=== PATIENT | female | born 1980 | race Caucasian/White ===

== ENCOUNTER 2020-06-20 10:14 | Emergency (ER) | payer SELFPAY ==
--- NOTE | 2020-06-20 10:36 | ED_ITS ---
HPI - Abdominal Pain General Chief Complaint: Abdominal Pain Stated Complaint: abd pain,vomiting Time Seen by Provider: 06/20/20 10:36 Source: patient Mode of arrival: ambulatory Limitations: no limitations History of Present Illness MD elicited complaint: abdominal pain Onset (ago): month(s) (2) Pain Consistency: intermittent Location: LUQ Severity: moderate Quality: stabbing and aching Radiation: none Migration to: no migration Exacerbating factors: eating Relieving factors: nothing Context: other (notes 2 months of soft stools and early satiety, intermittent LUQ pain and since last night LUQ pain more worse) Associated symptoms: nausea Related Data Previous Rx's Medication Instructions Recorded levofloxacin 500 mg PO DAILY 7 Days #7 tab 06/20/20 metronidazole [Flagyl] 500 mg PO BID 7 Days #14 tab 06/20/20 ondansetron 4 mg PO Q8H PRN #20 tab 06/20/20 oxycodone 5 mg PO TID PRN #14 tab 06/20/20 Allergies Allergy/AdvReac Type Severity Reaction Status Date / Time amoxicillin Allergy Unknown Verified 06/20/20 10:41 Review of Systems Review of Systems Constitutional : No Weight loss, No Fever, No Chills ENT/Mouth : No sore throat, No Rhinorrhea Eyes: No Swelling, No Redness Cardiovascular : No Chest Pain, No SOB, NoEdema Respiratory : No Cough, No Sputum, No Wheezing Gastrointestinal : Positive Nausea, no Vomiting, positive Diarrhea, positive abdominal Pain, No Hematochezia, No Melena Genitourinary : No Dysuria, No Urinary Frequency, No Hematuria, No Urgency Musculoskeletal : No joint pain, No Myalgias, No Joint Swelling Skin : No Skin Lesions, No rash Neuro : No Weakness, No Numbness, No Dizziness, No Headache Psych : No Anxiety/Panic, No Depression Heme/Lymph: No Bruising, No Lymphadenopathy Endocrine : No Polyuria, No Polydipsia All other systems reviewed and are negative. Physical Exam Vital Signs: Vital Signs: Last Vital Signs Temp 99.1 F 06/20/20 10:44 Pulse 79 06/20/20 13:08 Resp 16 06/20/20 13:08 BP 139/79 06/20/20 13:08 Pulse Ox 97 06/20/20 13:08 Body Mass Index 48.4 Appearance: Alert. Oriented X3. No acute distress. Eyes: Pupils equal, round and reactive to light. ENT: Pharynx normal. Neck: Normal inspection. Neck supple. CVS: Normal heart rate and rhythm. Pulses normal. Respiratory: No respiratory distress. Breath sounds normal. Abdomen: Soft and moderate LUQ ttp no rebound or guarding Skin: Skin warm and dry. Normal skin color. Normal skin turgor. Extremities: No lower extremity edema. No calf ttp Neuro: Oriented X 3. No motor deficit. No sensory deficit. Course Course Course Narrative: patient is not toxic, able to tolerate PO will start on antibiotics and refer to GI - patient aware MDM - Abdominal Pain MDM Narrative Medical decision making narrative: 40 yo female with hx of stones comes in with 2 months of soft stools and early satiety - no weight loss, then developed worsening LUQ pain at this time will need labs, IVF, CT scan for colitis/mass - no fam hx of IBD Lab Data Result diagrams: 06/20/20 11:03 06/20/20 11:03 Labs: Lab Results 06/20/20 06/20/20 06/20/20 Range/Units 11:03 11:03 11:03 WBC 13.5 H (4.8-10.8) X10*3/uL RBC 4.63 (4.20-5.50) X10*6/uL Hgb 12.9 (12.0-16.0) g/dl Hct 40.6 (37-47) % MCV 87.7 (80-98) fL MCH 27.9 (27.0-33.0) pg MCHC 31.8 (31.0-35.0) g/dl RDW 14.5 (11.0-16.0) % Plt Count 329 (160-400) X10*3/uL MPV 10.7 (9.4-12.3) fL Immature Gran % (Auto) 0.3 (0.0-0.4) % Neut % (Auto) 76.1 H (45-73) % Lymph % (Auto) 11.9 L (20-40) % [place] % (Auto) 10.9 (2-11) % Eos % (Auto) 0.4 (0-4) % Baso % (Auto) 0.4 (0-2) % Lymph # (Auto) 1.6 (1.2-4.9) X10*3/uL [place] # (Auto) 1.5 H (0.1-1.2) X10*3/uL Eos # (Auto) 0.1 (0.0-0.4) X10*3/uL Baso # (Auto) 0.1 (0.0-0.2) X10*3/uL Abs Immat Gran (auto) 0.04 H (0.00-0.03) X10*3/uL Absolute Neuts (auto) 10.3 H (2.0-8.3) X10*3/uL Absolute Nucleated RBC 0.000 (0.0-0.012) X10*3/uL Nucleated RBC % (auto) 0.0 (0.0-0.2) /100WBC Hold Blue Top SEE NOTE Sodium 139 (135-145) mmol/L Potassium 4.3 (3.3-5.1) mmol/l Chloride 105 (96-108) mmol/L Carbon Dioxide 24 (22-29) mmol/L Anion Gap 14 (12-20) BUN 5 L (9-16) mg/dL Creatinine 0.62 (0.5-1.4) mg/dL Estim Creat Clear Calc 150.2 Estimated GFR > 60 Random Glucose 94 (60-115) mg/dL Calcium 8.7 (8.4-10.2) mg/dL Magnesium 1.9 (1.6-2.6) mg/dL Total Bilirubin 0.4 (0.0-1.0) mg/dL Direct Bilirubin 0.2 (0.0-0.5) mg/dL AST 102 H (5-31) U/L ALT 92 H (0-31) U/L Alkaline Phosphatase 70 (39-117) U/L Total Protein 6.5 (6.5-8.0) g/dL Albumin 3.9 (3.5-5.0) g/dL Lipase 28 (8-78) U/L Urine Color Urine Appearance Urine pH (5.0-8.0) Ur Specific [place] (1.005-1.025) Urine Protein (NEG-TRACE) MG/DL Urine Glucose (UA) (NEG) MG/DL Urine Ketones (NEG) MG/DL Urine Blood (NEG) Urine Nitrite (NEG) Ur Leukocyte Esterase (NEG) Urine RBC (0) /HPF Urine WBC (0-4) /HPF Ur Squamous Epith Cells /LPF Urine Bacteria /LPF Urine Mucus /LPF Urine Test (NEGATIVE) 06/20/20 Range/Units 11:07 WBC (4.8-10.8) X10*3/uL RBC (4.20-5.50) X10*6/uL Hgb (12.0-16.0) g/dl Hct (37-47) % MCV (80-98) fL MCH (27.0-33.0) pg MCHC (31.0-35.0) g/dl RDW (11.0-16.0) % Plt Count (160-400) X10*3/uL MPV (9.4-12.3) fL Immature Gran % (Auto) (0.0-0.4) % Neut % (Auto) (45-73) % Lymph % (Auto) (20-40) % [place] % (Auto) (2-11) % Eos % (Auto) (0-4) % Baso % (Auto) (0-2) % Lymph # (Auto) (1.2-4.9) X10*3/uL [place] # (Auto) (0.1-1.2) X10*3/uL Eos # (Auto) (0.0-0.4) X10*3/uL Baso # (Auto) (0.0-0.2) X10*3/uL Abs Immat Gran (auto) (0.00-0.03) X10*3/uL Absolute Neuts (auto) (2.0-8.3) X10*3/uL Absolute Nucleated RBC (0.0-0.012) X10*3/uL Nucleated RBC % (auto) (0.0-0.2) /100WBC Hold Blue Top Sodium (135-145) mmol/L Potassium (3.3-5.1) mmol/l Chloride (96-108) mmol/L Carbon Dioxide (22-29) mmol/L Anion Gap (12-20) BUN (9-16) mg/dL Creatinine (0.5-1.4) mg/dL Estim Creat Clear Calc Estimated GFR Random Glucose (60-115) mg/dL Calcium (8.4-10.2) mg/dL Magnesium (1.6-2.6) mg/dL Total Bilirubin (0.0-1.0) mg/dL Direct Bilirubin (0.0-0.5) mg/dL AST (5-31) U/L ALT (0-31) U/L Alkaline Phosphatase (39-117) U/L Total Protein (6.5-8.0) g/dL Albumin (3.5-5.0) g/dL Lipase (8-78) U/L Urine Color YELLOW Urine Appearance CLEAR Urine pH 6.0 (5.0-8.0) Ur Specific [place] 1.015 (1.005-1.025) Urine Protein NEG (NEG-TRACE) MG/DL Urine Glucose (UA) NEG (NEG) MG/DL Urine Ketones NEG (NEG) MG/DL Urine Blood 1+ H (NEG) Urine Nitrite NEG (NEG) Ur Leukocyte Esterase 1+ H (NEG) Urine RBC 0-2 (0) /HPF Urine WBC 5-9 H (0-4) /HPF Ur Squamous Epith Cells 1+ /LPF Urine Bacteria 1+ /LPF Urine Mucus TRACE /LPF Urine Test NEGATIVE (NEGATIVE) Discharge Plan Discharge Clinical Impression: Colitis Patient Disposition: Home, Self-Care Instructions: Colitis (ED) Additional Instructions: return to ED for any worsening symptoms or concerns you will need to have a colonoscopy so please follow up with GI Prescriptions: New oxycodone 5 mg tablet 5 mg PO TID PRN (Reason: pain) Qty: 14 RF: 0 metronidazole [Flagyl] 500 mg tablet 500 mg PO BID 7 Days Qty: 14 RF: 0 levofloxacin 500 mg tablet 500 mg PO DAILY 7 Days Qty: 7 RF: 0 ondansetron 4 mg tablet,disintegrating 4 mg PO Q8H PRN (Reason: nausea and vomiting) Qty: 20 RF: 0 Referrals: Georgiana Martinez MD [Physician] - 1 week Stand Alone Forms: Work/School Release [facility] Past Medical History Medical History Kidney stones Surgical History History of lithotripsy Social History Social History Alcohol intake: never Smoking Status: Current every day smoker Use of substances other than those prescribed or required for medical reasons: No Advance Directives: No Advance Directives Information Provided: Yes
[2020-06-20 10:44] VITALS: BP 168/92; PULSE 100; RESP 18; TEMP 37.3; O2SAT 96; BMI 48.4
--- NOTE | 2020-06-20 10:52 | CT_ITS ---
EXAMINATION: CT abdomen pelvis w con CLINICAL INFORMATION: Reason for Exam L sided abdominal pain and diarrhea COMPARISON: No prior CT available for comparison. TECHNIQUE: Multidetector volumetric imaging was performed from the superior aspect of the liver through the pubic symphysis 85 mL Omnipaque 350 injected Sagittal and coronal reformatted images were obtained on the technologist's workstation. This CT examination was performed using dose optimization techniques as appropriate, variously including the following: *Automated exposure control *Adjustment of mA and/or kV according to patient size (this includes techniques or standardized protocols for targeted exams where dose is matched to indication/reason for exam; i.e. extremities or head) *Use of iterative reconstruction technique DLP: 1266 mGy-cm FINDINGS: LOWER THORAX: Included lung bases are clear. HEPATOBILIARY: No focal hepatic lesions. No biliary ductal dilatation. GALLBLADDER: There is 2 cm large gallstone. SPLEEN: Spleen is normal in size. PANCREAS: No focal mass or ductal dilatation. STOMACH AND GASTROINTESTINAL TRACT: Stomach is grossly unremarkable. A segment of the sigmoid colon left of midline exhibits circumferential wall thickening edema and pericolic fat stranding concerning for possible diverticulitis versus focal colitis. There is no abscess No CT evidence of appendicitis. ADRENALS: No adrenal nodules. KIDNEYS/URETERS: No hydronephrosis, stones or solid mass lesions. URINARY BLADDER: Partially decompressed. PELVIC VISCERA: Unremarkable PERITONEUM: No free air or fluid. LYMPH NODES: No lymphadenopathy. VASCULAR:Abdominal aorta normal in size, no aneurysm found. BONES, ABDOMINAL WALL AND SOFT TISSUES: Age-appropriate changes of the spine and skeletal system, no destructive osteolytic or osteosclerotic bone lesion found CT/CT abdomen pelvis w con IMPRESSION: A short segment of the colon transverse colon/splenic flecture left upper quadrant exhibits extensive circumferential wall thickening, wall edema and pericolic fat stranding concerning for ACUTE COLITIS could be secondary to a ruptured diverticula i.e. diverticulitis. This is uncommon location for diverticulitis, Attention to follow-up recommended to rule out possible underlying pathology. Consider follow-up CT scan in one month after completion of treatment. Large gallstone. Exam otherwise normal.
[2020-06-20 11:11] LABS: MANUAL DIFF FLAG NO
[2020-06-20 11:12] LABS: Basophils Absolute Auto 0.1 X10*3/uL (0.0-0.2); Basophils Percent Auto 0.4 % (0-2); Eosinophils Absolute Auto 0.1 X10*3/uL (0.0-0.4); Eosinophils Percent Auto 0.4 % (0-4); Hematocrit 40.6 % (37-47); Hemoglobin 12.9 g/dl (12.0-16.0); Imm Gran Abs Auto 0.04 X10*3/uL (0.00-0.03); Imm Gran Pct Auto 0.3 % (0.0-0.4); Lymphocytes Absolute Auto 1.6 X10*3/uL (1.2-4.9); Lymphocytes Percent Auto 11.9 % (20-40); Mean Corpuscular HGB Conc 31.8 g/dl (31.0-35.0); Mean Corpuscular Hemoglobin 27.9 pg (27.0-33.0); Mean Corpuscular Volume 87.7 fL (80-98); Mean Platelet Volume 10.7 fL (9.4-12.3); Monocytes Absolute Auto 1.5 X10*3/uL (0.1-1.2); Monocytes Percent Auto 10.9 % (2-11); Neutrophils Absolute Auto 10.3 X10*3/uL (2.0-8.3); Neutrophils Percent Auto 76.1 % (45-73); Platelet Count 329 X10*3/uL (160-400); Red Blood Count 4.63 X10*6/uL (4.20-5.50); Red Cell Distribution Width 14.5 % (11.0-16.0); White Blood Count 13.5 X10*3/uL (4.8-10.8)
[2020-06-20 11:16] LABS: Glucose Urine UA NEG (NEG); Leukocyte Esterase Urine 1+ (NEG); Nitrite Urine NEG (NEG); Specific Gravity - Urine 1.015 (1.005-1.025); Urine Blood 1+ (NEG); Urine Ketones NEG (NEG); Urine Protein NEG (NEG-TRACE)
[2020-06-20 11:19] LABS: Appearance Urine CLEAR; Color Urine YELLOW
[2020-06-20] MEDS: 0.9 % Sodium Chloride 1,000 ML 999 ML IVCONT (11:19)
[2020-06-20 11:21] LABS: UPreg QC Valid YES; Urine Pregnancy NEGATIVE (NEGATIVE)
[2020-06-20 11:41] LABS: Bacteria Urine 1+ /LPF; Mucus Urine TRACE /LPF; RBC Urine 0-2 /HPF (0); Squamous Epithelial Cell Urine 1+ /LPF
[2020-06-20 11:43] LABS: Alanine Aminotransferase 92 U/L (0-31); Albumin Level 3.9 g/dL (3.5-5.0); Alkaline Phosphatase 70 U/L (39-117); Anion Gap 14 (12-20); Aspartate Amino Transferase 102 U/L (5-31); Bilirubin Direct 0.2 mg/dL (0.0-0.5); Bilirubin Total 0.4 mg/dL (0.0-1.0); Blood Urea Nitrogen 5 mg/dL (9-16); Calcium 8.7 mg/dL (8.4-10.2); Carbon Dioxide 24 mmol/L (22-29); Chloride 105 mmol/L (96-108); Creatinine Clr Calc Pharmacy 150.2; Estimated Glomerular Filt Rate > 60; Glucose Random 94 mg/dL (60-115); Lipase 28 U/L (8-78); Magnesium 1.9 mg/dL (1.6-2.6); Potassium 4.3 mmol/l (3.3-5.1); Sodium 139 mmol/L (135-145); Total Protein 6.5 g/dL (6.5-8.0)
[2020-06-20] MEDS: iohexoL 350 MG/ML 100 ML INFUS..BTL 85 ML IV (12:35)
[2020-06-20 13:08] VITALS: BP 139/79; PULSE 79; RESP 16; O2SAT 97
== END 2020-06-20 14:17 | disposition home or self-care (01) ==
PROVIDERS: Emergency Provider Emergency Medicine
DX: K52.9 Noninfective gastroenteritis and colitis, unspecified (principal); Z87.442 Personal history of urinary calculi
CPT/HCPCS: 36415; 74177; 80048; 80076; 81001; 81025; 83690; 83735; 85025; 87086; 96361; 96374; 99284; 99285; Q9967

== ENCOUNTER → 2020-08-04 14:06 | Outpatient (BNVA) | payer OTHER, SELFPAY | PROVIDERS: PCP Emergency Medicine; Visit Provider Physician Assistant ==

== ENCOUNTER 2020-08-26 15:33 | Outpatient (REF) | payer OTHER, SELFPAY ==
--- NOTE | ~2020-08-26 | CT_ITS ---
EXAMINATION: CT ABDOMEN AND PELVIS WITH CONTRAST CLINICAL INFORMATION: Noninfectious gastroenteritis and colitis. COMPARISON: 06/20/2020 TECHNIQUE: Multidetector volumetric images were obtained from the superior aspect of the liver through the pubic symphysis following administration 85 mL of Omnipaque 350 intravenous contrast. Sagittal and coronal reformatted images were obtained on the technologist's workstation. Oral contrast: No. This CT examination was performed using dose optimization techniques as appropriate, variously including the following: *Automated exposure control *Adjustment of mA and/or kV according to patient size (this includes techniques or standardized protocols for targeted exams where dose is matched to indication/reason for exam; i.e. extremities or head) *Use of iterative reconstruction technique DLP: 984 mGy-cm FINDINGS: LUNG BASES: The visualized lung bases are unremarkable. LIVER, GALLBLADDER, AND BILIARY TREE: No focal liver lesion. No biliary duct dilatation. 2.3 cm gallstone. No acute inflammatory changes are evident adjacent to the gallbladder. PANCREAS: Unremarkable. No inflammatory changes. SPLEEN: Unremarkable. ADRENAL GLANDS: Unremarkable. KIDNEYS AND URETERS: No calculi or hydronephrosis. No solid lesion seen. No inflammatory changes. BLADDER: Unremarkable. GASTROINTESTINAL TRACT: Stomach is nondistended precluding evaluation. No dilated small bowel loops. Scattered colonic diverticula. No evidence of diverticulitis. There is oral contrast extending through the large bowel to the level of the proximal descending colon. The large colon is nondilated. The previously seen inflammatory changes in the transverse colon/splenic flexure have resolved in the interim. There is no definite wall thickening or definite mass lesion in the area of previously noted inflammatory changes, with evaluation limited by lack of distention. Normal appendix. No free fluid. No free air. ABDOMINAL WALL: No significant hernia is appreciated. LYMPH NODES: No lymphadenopathy seen. VASCULAR: Normal caliber abdominal aorta. Portal vein is enhancing. PELVIC VISCERA: Within normal limits. OSSEOUS STRUCTURES: No acute or suspicious osseous abnormality seen. CT/CT abdomen pelvis w con IMPRESSION: Interval resolution of the previously noted inflammatory changes in the transverse colon/splenic flexure. No definite wall thickening or mass lesion is identified in this region, with evaluation limited by lack of colonic distention. Recommend clinical correlation, correlation with clinical history/risk factors. Further evaluation with followup CT using rectal contrast or CT colonography as clinically warranted. Alternately, consider followup CT abdomen for reassessment.
[2020-08-26] MEDS: iohexoL 350 MG/ML 100 ML INFUS..BTL 85 ML IV (16:49)
[2020-08-26] MEDS: Barium Sulfate Oral (Berry) 450 ML ORAL.SUSP 900 ML PO (16:50)
== END 2020-08-26 15:34 | disposition home or self-care (01) ==
LOC: HO.CT 15:33
PROVIDERS: Visit Provider Physician Assistant
DX: K52.9 Noninfective gastroenteritis and colitis, unspecified (principal)
CPT/HCPCS: 74177; Q9967

== ENCOUNTER → 2020-09-13 10:33 | Outpatient (BNVA) | payer OTHER, SELFPAY | PROVIDERS: PCP Emergency Medicine; Visit Provider Physician Assistant ==

== ENCOUNTER 2021-01-20 07:27 | Day surgery (SDC) | payer OTHER, SELFPAY ==
[2021-01-14 10:17] VITALS: BMI 47.5
--- NOTE | 2021-01-19 09:46 | HO.ANESPROP2 ---
Documented by User: Rita Maciasney 01/19/21 09:46 HPI - Anesthesia Eval Consult details Narrative: 40yo F for Upper Endoscopy and Colonoscopy PMFSH Active Problems Active Problems: All Active Problems (Updated 01/14/21 @ 10:20 by Elizabeth Foley) Acute colitis (Acute) Acid reflux (Acute) Past Medical History Medical History Acid reflux Arrhythmia COVID-19 vaccine administered Kidney stones Family History Family History Father Unknown family medical history Surgical History Surgical History History of lithotripsy Hx of oral surgery Social History Social History Household Members: Spouse Are you a primary manager managed care to a significant other at home: No Do you presently have visiting nurse or other home services: No Alcohol intake: current Alcohol intake frequency: holidays/special occasions only Patient Tobacco Use Status: Current everyday Tobacco user Tobacco use type: Cigarette Cigarettes Per Day: 5 Years Smoked: 24 Smoked in Last 30 Days: Yes Use of substances other than those prescribed or required for medical reasons: No Have you been hit, kicked, punched, or otherwise hurt by someone within the past year? If so, by whom?: No Are you DNR?: No Advance Directives: No Advance Directives Information Provided: Yes (does not have an official HCP- is NOK) Advance Directives on File: No Recently lost weight without trying: Yes How much weight loss: 14-23 pounds Eating poorly because of decreased appetite: No Nutrition screen score: 4 Nutrition Risks: No Nutritional Risk Patient : No FDLMP: N/A-perimenopausal : No Poor oral hygiene: No (upper partial) Current occupational status: employed Current occupation: Supervisor [employer] at [employer] Allergies Allergy/AdvReac Type Severity Reaction Status Date / Time codeine Allergy Intermediate Vomiting Verified 01/20/21 08:04 amoxicillin Allergy Unknown unknown-childhood Verified 01/20/21 08:04 allergy Penicillins Allergy Unknown unknown-childhood Verified 01/20/21 08:04 allergy Home Medications Medication Instructions Recorded Confirmed Last Taken Type levonorgestrel-ethinyl estrad 1 tab PO DAILY 01/14/21 01/14/21 Unknown History [Sarah] omeprazole magnesium [Prilosec OTC] 20 mg PO DAILY 01/14/21 01/14/21 Unknown History Exam Exam Date and Time: January 19, 2021 0946 Height,Weight and Vital Signs: Height 5 ft 2 in Weight 117.934 kg Assessment and Plan Assessment Anesthesia Assessment: Chart Reviewed Documented by User: Andre Chavez MD 01/20/21 08:36 PMFSH Past Medical History Medical History Acid reflux Arrhythmia COVID-19 vaccine administered Kidney stones Family History Family History Father Unknown family medical history Surgical History Surgical History History of lithotripsy Hx of oral surgery Social History Social History Household Members: Spouse Are you a primary manager managed care to a significant other at home: No Do you presently have visiting nurse or other home services: No Alcohol intake: current Alcohol intake frequency: holidays/special occasions only Patient Tobacco Use Status: Current everyday Tobacco user Tobacco use type: Cigarette Cigarettes Per Day: 5 Years Smoked: 24 Smoked in Last 30 Days: Yes Use of substances other than those prescribed or required for medical reasons: No Have you been hit, kicked, punched, or otherwise hurt by someone within the past year? If so, by whom?: No Are you DNR?: No Advance Directives: No Advance Directives Information Provided: Yes (does not have an official HCP- is NOK) Advance Directives on File: No Recently lost weight without trying: Yes How much weight loss: 14-23 pounds Eating poorly because of decreased appetite: No Nutrition screen score: 4 Nutrition Risks: No Nutritional Risk Patient : No FDLMP: N/A-perimenopausal : No Poor oral hygiene: No (upper partial) Current occupational status: employed Current occupation: Supervisor [employer] at [employer] Med Allergies Allergy/AdvReac Type Severity Reaction Status Date / Time codeine Allergy Intermediate Vomiting Verified 01/20/21 08:04 amoxicillin Allergy Unknown unknown-childhood Verified 01/20/21 08:04 allergy Penicillins Allergy Unknown unknown-childhood Verified 01/20/21 08:04 allergy Home Medications Medication Instructions Recorded Confirmed Last Taken Type levonorgestrel-ethinyl estrad 1 tab PO DAILY 01/14/21 01/14/21 Unknown History [Jolessa] omeprazole magnesium [Prilosec OTC] 20 mg PO DAILY 01/14/21 01/14/21 Unknown History Exam Airway Mallampati Class: III TM Dist: >3cm Loose/Missing/Broken Teeth: No Heart: RRR Assessment and Plan Assessment Anesthesia Assessment: Anesthesia Plan Discussed and Chart Reviewed Final Anesthetic Review NPO: Yes ASA Class: III Final Preanesthetic Review: No Changes in Pt Med Stat, Meds/Allgs Chart Reviewed, Consent Obtained/Reviewed and Anes Risks/Benef Reviewed Patient Risk: High Procedure Risk: Low Anesthetic Plan Anesthetic Plan: MAC: Disposition: Standard PACU
--- NOTE | 2021-01-20 07:33 | MHC.SHP ---
Pre-Procedural Eval Section A Date of Service: 01/20/21 Section B Chief Complaint: epigastric pain Relevant Family History (Specify if Yes): No Relevant Social History: Tobacco Use Present Medications: see Short Stay Collaborative assessment Medical History: Significant History (Acid reflux Kidney stones) History of Previous Operations: Relevant previous surgery/procedure and date(s) (lithotripsy) Allergies: Allergies Allergy/AdvReac Type Severity Reaction Status Date / Time codeine Allergy Intermediate Vomiting Verified 01/14/21 10:23 amoxicillin Allergy Unknown unknown-childhood Verified 01/14/21 10:23 allergy Penicillins Allergy Unknown unknown-childhood Verified 01/14/21 10:23 allergy Review of Systems Sugical H&P ROS: Negative: Constitution, Cardiovascular, Respiratory, Neurological, Psychiatric, Hem-Onc, Allergic/Immunologic, Gastrointestinal, Genitourinary, Musculoskeletal, Integumentary, Endocrine and Eyes/Ears/Nose/Throat Exam Surgical H&P Exam: Normal: HEENT, Normal: Heart, Normal: Lungs, Normal: Extremities, Normal: Abdomen, Normal: Skin and Normal: Neurological Plan Diagnosis/Plan: Unchanged I have reviewed the history and physical and performed a pertinent physical examination on my patient. No changes have occurred unless specified.
[2021-01-20 07:39] VITALS: BP 151/83; PULSE 91; RESP 18; TEMP 36.9; O2SAT 97
[2021-01-20 07:51] LABS: UPreg QC Valid YES; Urine Pregnancy NEGATIVE (NEGATIVE)
[2021-01-20] MEDS: Lactated Ringers 1,000 ML 100 ML IVCONT (08:04)
--- NOTE | 2021-01-20 08:52 | PM.OP ---
Brief Operative Note Date of Service: 01/20/21 Pre-op diagnosis: epigastric pain and hx of colitis Post-op diagnosis: same Procedure: see op note Surgeon: Curry Mendoza MD Anesthesia: MAC Was an Senior Mechanical Design Engineer used for this Procedure?: No Estimated blood loss (mL): 0 Condition: stable Disposition: PACU
--- NOTE | 2021-01-20 08:52 | W.PM.OPN ---
Operative Note Operative Note Date of Service: 01/20/21 Narrative: Operative Information Procedure Description: EGD, Colonoscopy FLEXIBLE TRANSORAL UPPER GASTROINTESTINAL ENDOSCOPY AND COLONOSCOPY PROCEDURE NOTE UPPER ENDOSCOPY Consent: Indications for the procedure and potential complications of bleeding, perforation, reaction to medications and missed diagnosis were discussed with the patient and informed consent was obtained. Instrument: Olympus GIF H 190 J mid size upper endoscope Monitoring: Vital signs and clinical assessment, continuous EKG monitoring, Pulse oximetry, Carbon Dioxide monitoring and blood pressure monitoring were done throughout the procedure. Procedure: The patient was placed in the left lateral decubitis position and pre-procedure medications were administered and a bite block was placed. The endoscope was inserted into the mouth and advanced under direct vision to the third part of duodenum. A careful inspection was made as the upper endoscope was withdrawn including a retroflexed examination of the proximal stomach; Findings and interventions are described below. Findings: Larynx:normal Esophagus: GE junction at 36 cm, diaphragm hiatus at 36 cm, irregular Z line with islands of salmon pink tissue suspicious for barretts, bx taken Stomach: Normal mucosa. Biopsies were obtained. Grade 2 flap valve on retroflexed examination of the cardia. slightly lax LES. Duodenum: Normal bulb and descending duodenum, bx taken Intervention: Biopsies as noted above COLONOSCOPY Instrument: Olympus variable stiffness pediatric scope 190L Colonoscopy Monitoring: Vital signs and clinical assessment, continuous EKG monitoring, Pulse oximetry, Carbon Dioxide monitoring and blood pressure monitoring were done throughout the procedure. Colon withdrawal time was 11 minutes. Procedure: The patient was placed in the left lateral decubitis position and pre-procedure medications were administered. After a digital rectal examination of the ano-rectum, the video colonoscope was inserted into the rectum and advanced through the colon to the cecum/TI. The colonoscope was slowly withdrawn in a retrograde panoramic fashion and the colon mucosa was carefully examined including a retroflexed view of the rectum. Findings and interventions are described below. Procedure Difficulty:easy Findings: Terminal Ileum-normal, bx taken Colon bx taken from right colon, left, and rectum in separate jars Cecum: 8 mm sessile polyp removed with cold snare Ascending Colon: normal Transverse Colon -normal Descending Colon:normal Sigmoid Colon: mild to moderate diverticulosis noted with small tics Rectum: Retroflexion with small internal hemorrhoids, grade II Anorectum - internal hemorrhoids seen at anal verge Colon preparation: [place] Bowel Preparation Scale Right colon; 2 Transverse colon: 3 Left colon; 3 (0 = Unprepared colon segment with mucosa not seen due to solid stool that cannot be cleared. 1 = Portion of mucosa of the colon segment seen, but other areas of the colon segment not well seen due to staining, residual stool and/or opaque liquid. 2 = Minor amount of residual staining, small fragments of stool and/or opaque liquid, but mucosa of colon segment seen well. 3 = Entire mucosa of colon segment seen well with no residual staining, small fragments of stool or opaque liquid) Impression and Post Procedure Diagnosis: Endoscopy Findings: susepcted barretts esophagus Colonoscopy Findings: polyp internal hemorrhoids diverticular disease Plan: Await Pathology results Repeat Colonoscopy in 5-6 years or earlier if clinically indicated High fiber diet leaflet avoid straining at stool, epsom salts and sitz bath, anusol supps or cream as needed Above findings were reviewed with the patient and relevant handouts were provided if indicated.
[2021-01-20 09:16] VITALS: BP 106/63; PULSE 79; RESP 16; TEMP 36.1; O2SAT 96
[2021-01-20 09:32] VITALS: BP 144/92; PULSE 79; RESP 16; TEMP 36.3; O2SAT 97
== END 2021-01-20 10:15 | disposition home or self-care (01) ==
PROVIDERS: Nurse Practitioner; PCP Emergency Medicine; Visit Provider Internal Medicine Gastroenterology
PROC: (CPT 45385; principal; 2021-01-20 08:30)
DX: K52.9 Noninfective gastroenteritis and colitis, unspecified (principal); D12.0 Benign neoplasm of cecum; K57.30 Diverticulosis of large intestine without perforation or abscess without bleeding; K64.1 Second degree hemorrhoids; R10.13 Epigastric pain; K21.9 Gastro-esophageal reflux disease without esophagitis; I49.9 Cardiac arrhythmia, unspecified; F17.210 Nicotine dependence, cigarettes, uncomplicated; Z79.899 Other long term (current) drug therapy; Z88.0 Allergy status to penicillin; Z88.8 Allergy status to other drugs, medicaments and biological substances; Z87.442 Personal history of urinary calculi
CPT/HCPCS: 45385; 43239; 81025; 88305; 88342; J3010

== ENCOUNTER → 2021-02-02 09:27 | Outpatient (BNVA) | payer OTHER, SELFPAY | PROVIDERS: PCP Emergency Medicine; Visit Provider Physician Assistant ==

== ENCOUNTER → 2021-03-22 09:11 | Outpatient (BNVA) | payer OTHER, SELFPAY | PROVIDERS: PCP Emergency Medicine; Visit Provider Physician Assistant ==

== ENCOUNTER → 2021-09-20 09:54 | Outpatient (BNVA) | payer OTHER, SELFPAY | PROVIDERS: PCP Emergency Medicine; Visit Provider Physician Assistant | DX: Z13.89 Encounter for screening for other disorder (principal) ==

== ENCOUNTER 2022-02-27 09:52 | Outpatient (REF) | payer OTHER, SELFPAY ==
--- NOTE | ~2022-02-27 | US_ITS ---
EXAMINATION: US ABDOMEN COMPLETE CLINICAL INFORMATION: Gallbladder calculus. COMPARISON: CT abdomen/pelvis 08/26/2020. TECHNIQUE: Real-time imaging of the abdominal viscera. FINDINGS: PANCREAS: Normal. ABDOMINAL AORTA: The proximal, mid, and distal segments are normal in caliber. INFERIOR VENA CAVA: Visualized portions are normal. LIVER: The liver is enlarged measuring 18.6 cm in length and demonstrates increased parenchymal echogenicity. There are several hypoechoic liver lesions, largest measuring 4.7 cm in the right hepatic lobe (50/91, series 1). No intrahepatic biliary ductal dilatation. GALLBLADDER: There are mobile gallbladder calculi, largest measuring up to 2.7 cm. There is gallbladder wall thickening, measuring 0.6 cm, but no pericholecystic free fluid and a negative Palomino's sign. There are comet tail artifacts in the gallbladder neck, possibly associated with focal adenomyomatosis. COMMON BILE DUCT: Normal in caliber measuring 0.6 cm in diameter. RIGHT KIDNEY: Normal. No hydronephrosis. No renal calculi or focal parenchymal lesions. The kidney measures 12.8 cm in maximum dimension. LEFT KIDNEY: Normal. No hydronephrosis. No renal calculi or focal parenchymal lesions. The kidney measures 10.9 cm in maximum dimension. SPLEEN: Normal. The spleen measures 7.5 cm in maximum dimension. FREE FLUID: None. US/US abdomen complete IMPRESSION: 1. Cholelithiasis with gallbladder wall thickening but no significant pericholecystic free fluid and a negative Palomino's sign. Findings could be associated with early acute cholecystitis, correlate clinically. 2. Several hypoechoic liver lesions are noted, nonspecific, recommend further evaluation with a dynamic abdominal MRI with and without intravenous contrast. When compared to the CT from 08/26/2020, there may be some subtle lesions that are hypo to isoattenuating when compared to liver parenchyma. 3. Hepatomegaly with hyperechoic parenchyma suggesting hepatic steatosis.
[2022-02-27 10:40] LABS: MANUAL DIFF FLAG NO
[2022-02-27 11:56] LABS: Basophils Absolute Auto 0.1 X10*3/uL (0.0-0.2); Basophils Percent Auto 0.9 % (0-2); Eosinophils Absolute Auto 0.3 X10*3/uL (0.0-0.4); Eosinophils Percent Auto 2.6 % (0-4); Hematocrit 42.3 % (37.0-47.0); Hemoglobin 13.6 g/dl (12.0-16.0); Imm Gran Abs Auto 0.04 X10*3/uL (0.00-0.03); Imm Gran Pct Auto 0.4 % (0.0-0.4); Lymphocytes Absolute Auto 2.3 X10*3/uL (1.2-4.9); Lymphocytes Percent Auto 23.3 % (20-40); Mean Corpuscular HGB Conc 32.2 g/dl (31.0-35.0); Mean Corpuscular Hemoglobin 27.8 pg (27.0-33.0); Mean Corpuscular Volume 86.3 fL (80.0-98.0); Monocytes Absolute Auto 0.9 X10*3/uL (0.1-1.2); Monocytes Percent Auto 9.1 % (2-11); Neutrophils Absolute Auto 6.2 x10*3/uL (2.0-8.3); Neutrophils Percent Auto 63.7 % (45-73); Platelet Count 397 X10*3/uL (160-400); Red Cell Distribution Width 14.9 % (11.0-16.0); White Blood Count 9.7 X10*3/uL (4.8-10.8)
[2022-02-27 12:18] LABS: Alanine Aminotransferase 18 U/L (0-31); Albumin Level 4.2 g/dL (3.5-5.0); Alkaline Phosphatase 78 U/L (39-117); Anion Gap 16 (12-20); Aspartate Amino Transferase 25 U/L (5-31); Bilirubin Total 0.4 mg/dL (0.0-1.0); Blood Urea Nitrogen 9 mg/dL (9-16); Calcium 9.1 mg/dL (8.4-10.2); Carbon Dioxide 24 mmol/L (22-29); Chloride 108 mmol/L (96-108); Estimated Glomerular Filt Rate > 60; Glucose Random 83 mg/dL (60-115); Potassium 5.2 mmol/L (3.3-5.1); Sodium 143 mmol/L (135-145); Total Protein 6.9 g/dL (6.5-8.0)
== END 2022-02-27 09:53 | disposition home or self-care (01) ==
LOC: HO.US 09:52
PROVIDERS: Visit Provider Physician Assistant
DX: R10.11 Right upper quadrant pain (principal); K80.20 Calculus of gallbladder without cholecystitis without obstruction; G89.29 Other chronic pain
CPT/HCPCS: 36415; 76700; 80053; 85025

== ENCOUNTER → 2022-04-07 11:24 | Outpatient (BNVA) | payer OTHER, SELFPAY | PROVIDERS: PCP Emergency Medicine; Referring Provider Surgery; Visit Provider Dietitian, Registered | DX: E66.01 Morbid (severe) obesity due to excess calories (principal) | CPT/HCPCS: 97802 ==

== ENCOUNTER → 2022-05-30 15:42 | Outpatient (BNVA) | payer OTHER, SELFPAY | PROVIDERS: PCP Emergency Medicine; Referring Provider Surgery; Visit Provider Dietitian, Registered | DX: E66.01 Morbid (severe) obesity due to excess calories (principal); Z68.42 Body mass index [BMI] 45.0-49.9, adult | CPT/HCPCS: 97803 ==